=== PATIENT | female | born 1960 | race Caucasian/White ===

== ENCOUNTER → 2024-03-03 18:47 | Outpatient (REF) | payer OTHER, SELFPAY | LOC: WDC 18:47 | PROVIDERS: ATTENDING PHYSICIAN Nurse Practitioner Adult Health; FAMILY PHYSICIAN Family Medicine | DX: Z12.31 Encounter for screening mammogram for malignant neoplasm of breast (principal) | CPT/HCPCS: 77063; 77067 ==

== ENCOUNTER → 2024-08-09 09:49 | Outpatient (REF) | payer OTHER, SELFPAY | LOC: PAVMRI 09:49 | PROVIDERS: ATTENDING PHYSICIAN Internal Medicine Rheumatology | DX: M45.A0 Non-radiographic axial spondyloarthritis of unspecified sites in spine (principal) | CPT/HCPCS: 72195 ==

== ENCOUNTER → 2024-12-09 07:19 | Outpatient (REF) | payer OTHER, SELFPAY | LOC: HWRAD 07:19 | PROVIDERS: ATTENDING PHYSICIAN Family Medicine | DX: R10.11 Right upper quadrant pain (principal) | CPT/HCPCS: 76700 ==

== ENCOUNTER → 2024-12-10 14:53 | Outpatient (REF) | payer OTHER, SELFPAY | LOC: RAD 14:53 | PROVIDERS: ATTENDING PHYSICIAN Family Medicine | DX: R10.9 Unspecified abdominal pain (principal); R10.11 Right upper quadrant pain | CPT/HCPCS: 71101 ==

== ENCOUNTER → 2025-03-04 16:27 | Outpatient (REF) | payer OTHER, SELFPAY | LOC: WDC 16:27 | PROVIDERS: ATTENDING PHYSICIAN Nurse Practitioner Adult Health; FAMILY PHYSICIAN Family Medicine | DX: Z12.31 Encounter for screening mammogram for malignant neoplasm of breast (principal) | CPT/HCPCS: 77063; 77067 ==

== ENCOUNTER → 2025-03-17 13:51 | Outpatient (REF) | payer OTHER, SELFPAY | LOC: RAD 13:51 | PROVIDERS: ATTENDING PHYSICIAN Family Medicine | DX: Z13.820 Encounter for screening for osteoporosis (principal); Z78.0 Asymptomatic menopausal state | CPT/HCPCS: 77080 ==